=== PATIENT | female | born 1945 | race Caucasian/White ===

== ENCOUNTER 2023-04-14 14:58 | Outpatient (RCR) | payer OTHER, SELFPAY | END 2023-04-14 23:59 | disposition home or self-care (01) | LOC: RPT 14:58 | PROVIDERS: ATTENDING PHYSICIAN Neurological Surgery; FAMILY PHYSICIAN Internal Medicine | DX: M54.16 Radiculopathy, lumbar region (principal); Z98.1 Arthrodesis status; Z73.6 Limitation of activities due to disability | CPT/HCPCS: 97110; 97112; 97162; 97530 ==

== ENCOUNTER 2023-05-16 10:13 | Outpatient (RCR) | payer OTHER, SELFPAY | END 2023-05-16 23:59 | disposition home or self-care (01) | LOC: RPT 10:13 | PROVIDERS: ATTENDING PHYSICIAN Neurological Surgery; FAMILY PHYSICIAN Internal Medicine | DX: M54.16 Radiculopathy, lumbar region (principal); Z98.1 Arthrodesis status | CPT/HCPCS: 97110; 97112 ==

== ENCOUNTER → 2023-05-19 11:46 | Outpatient (REF) | payer OTHER, SELFPAY | LOC: PAVMRI 11:46 | PROVIDERS: ATTENDING PHYSICIAN Neurological Surgery; FAMILY PHYSICIAN Internal Medicine | DX: M54.16 Radiculopathy, lumbar region (principal); Z98.1 Arthrodesis status | CPT/HCPCS: 72148 ==

== ENCOUNTER → 2023-05-23 15:28 | Outpatient (REF) | payer OTHER, SELFPAY | LOC: HWRAD 15:28 | PROVIDERS: ATTENDING PHYSICIAN Neurological Surgery; FAMILY PHYSICIAN Internal Medicine | DX: Z98.1 Arthrodesis status (principal) | CPT/HCPCS: 72131 ==

== ENCOUNTER → 2023-05-24 07:39 | Outpatient (REF) | payer OTHER, SELFPAY | LOC: WDC 07:39 | PROVIDERS: ATTENDING PHYSICIAN Obstetrics & Gynecology; FAMILY PHYSICIAN Internal Medicine | DX: Z12.31 Encounter for screening mammogram for malignant neoplasm of breast (principal) | CPT/HCPCS: 77063; 77067 ==

== ENCOUNTER 2023-05-29 19:03 | Outpatient (RCR) | payer OTHER, SELFPAY | END 2023-05-29 23:59 | disposition home or self-care (01) | LOC: RPT 19:03 | PROVIDERS: ATTENDING PHYSICIAN Neurological Surgery; FAMILY PHYSICIAN Internal Medicine | DX: Z47.89 Encounter for other orthopedic aftercare (principal); M54.16 Radiculopathy, lumbar region; Z73.6 Limitation of activities due to disability; M62.81 Muscle weakness (generalized); R26.89 Other abnormalities of gait and mobility; Z98.1 Arthrodesis status | CPT/HCPCS: 97010; 97110; 97112 ==

== ENCOUNTER → 2024-01-08 07:28 | Outpatient (REF) | payer OTHER, SELFPAY | LOC: HWRAD 07:28 | PROVIDERS: ATTENDING PHYSICIAN Neurological Surgery; FAMILY PHYSICIAN Internal Medicine | DX: Z98.1 Arthrodesis status (principal) | CPT/HCPCS: 72131 ==

== ENCOUNTER 2024-02-26 06:14 | Day surgery (SDC) | payer MEDICARE, SELFPAY ==
[2024-02-02 13:13] VITALS: BMI 30.7
[2024-02-02 14:10] LABS: Hematocrit 44.8 % (37.0-47.0); Hemoglobin 14.7 g/dL (12.0-16.0); Mean Corp Hgb Conc. 32.8 g/dL (33.0-37.0); Mean Corpuscular Hgb 30.2 pg (27.0-31.0); Mean Platelet Volume 10.1 fL (7.4-10.4); Platelet Count 325 10^3/uL (130-400); Red Blood Cell Count 4.87 10^6/uL (4.20-5.40); Red Cell Dist. Width 14.7 % (11.5-14.5); White Blood Cell Count 7.7 10^3/uL (4.8-10.8)
[2024-02-02 14:35] LABS: ALT (SGPT) 24 U/L (0-35); AST (SGOT) 31 U/L (14-36); Albumin 4.4 g/dl (3.5-5.0); Alkaline Phosphatase 93 U/L (38-126); Blood Urea Nitrogen 25 mg/dl (7-17); Calcium 9.4 mg/dl (8.4-10.2); Carbon Dioxide 30 mmol/L (22-30); Chloride 99 mmol/L (98-107); Estimated Creatinine Clearance 59 ml/min; Glucose 84 mg/dl (70-99); Potassium 4.3 mmol/L (3.5-5.1); Sodium 142 mmol/L (135-145); Total Bilirubin 0.4 mg/dl (0.2-1.3); Total Protein 7.4 g/dl (6.3-8.2); eGFR > 60.00
[2024-02-03 09:05] LABS: Glycohemoglobin (HgbA1c) 5.7 % (4.0-5.6)
--- NOTE | 2024-02-13 11:51 | VNURNOTE ---
Chart reviewed. Patient is scheduled for L SRAVAN SDS / PSR on 02/25. Per [facility] outpt PT on 02/27. Call placed to patient to confirm. Left message.
--- NOTE | 2024-02-13 14:47 | VNURNOTE ---
Spoke with patient. Confirmed plan is SDS/PSR on 02/25 then outpt PT at [facility] on 02/27. Pt confirms her appt is made.
Plan: Outpt PT on 02/27
[2024-02-20 09:33] VITALS: BMI 30.7
[2024-02-26] VITALS (18 sets, daily range): BP systolic 106–154; BP diastolic 57–94; PULSE 91–92; O2SAT 96–99
[2024-02-26] MEDS: CELEBREX 200 MG PO (08:51)
[2024-02-26] MEDS: TYLENOL 650 MG PO ×3 (08:51→19:36)
[2024-02-26] MEDS: DILAUDID 0.5 MG IV ×3 (13:42→15:39)
--- NOTE | 2024-02-26 14:14 | W.PN.ORTHO ---
Today's Communication / Plan
-
D/c when clinically stable.
Assessment
.
Distal Motor Intact: Yes
Dressing:
Scant incisional bleeding.
Assessment:
L hip OA s/p L SRAVAN adams/ Dr Ramirez 02/26/24
- s/p L TKA 2016
DVT prophylaxis - ASA, b/l venous foot pumps
HTN - + parameters - monitor BP
Chronically abnormal EKG - monitor on tele
GERD - continue PPI therapy
Ambulatory dysfunction - on fall precautions
HLD
Palpitations
Chronic PINEDA
Congenital absence of right kidney
Multilevel DDD
Rectocele
Breast CA, 1998, s/p L lumpectomy and XRT, previous Tamoxifen
Osteopenia
CHOCTAW
Prediabetes, A1c 5.7
Obesity, BMI 30.7
Plan
.
Surgery / Date: Moira adams/ Dr Ramirez 02/26/24
DVT Prophylaxis: Aspirin
Activity:
Out of bed.
PT/OT
Discharge Plan: Home w/ Outpatient PT
Subjective
.
.:
Patient examined resting in PACU.
Reporting L hip pain post-procedure - will order IV toradol, lidocaine patches.
Denies any other new significant complaints.
Vital Signs and Labs
.
Vital Signs and Labs:
Lab Results
02/02/24 12:44
02/02/24 12:44
Physical Exam
-
HEENT: No pallor, cyanosis, or jaundice. Throat clear.
NECK: Supple. No JVD.
RESPIRATORY: Lungs clear to auscultation.
CVS: S1, S2 normal. RRR.�
ABDOMEN: Soft, non-tender. No distension. Obese.
EXTREMITIES: Strength equal, no calf pain with palpation/dorsiflexion. Calves soft.
EASEMENT MAN: AOx3. No focal deficits. sustainability coach grossly intact
[2024-02-26] MEDS: ROXICODONE 5 MG PO (14:40)
[2024-02-26] MEDS: TORADOL 15 MG IV (14:40)
--- NOTE | 2024-02-26 15:20 | PTCARENOTE ---
Patient s/p L Hip Replacement. Drainage evident on dressing, marked to monitor. Patient is pleasant, AAOX3. Pain is 7/10. Will premedicate for upcoming PT/OT.
[2024-02-26] MEDS: NORMOSOL-R/PLASMALYTE-A 1000 IV (15:27)
[2024-02-26] MEDS: PROTONIX PO (15:28)
[2024-02-26] MEDS: VITAMIN D3 (cholecalciferol) 50 MCG PO (15:39)
[2024-02-26] MEDS: LIDOCAINE 4% PATCH 2 PATCH TOPICAL (15:39)
[2024-02-26] MEDS: ANCEF 5 IV (17:10)
[2024-02-26] MEDS: ASPIRIN 325 MG PO (17:10)
[2024-02-26] MEDS: ZOFRAN 4 MG IV (17:10)
[2024-02-26] MEDS: BACTROBAN 2% OINTMENT 1 APPLIC NASAL (19:36)
[2024-02-26] MEDS: COLACE 100 MG PO (19:36)
[2024-02-26] MEDS: DECADRON 4 MG PO (19:36)
[2024-02-26] MEDS: SENOKOT 17.2 MG PO (19:37)
[2024-02-26] MEDS: NON-FORMULARY ITEM 1 DROP OPHTH (19:37)
[2024-02-26] MEDS: PEPCID 20 MG PO (22:02)
[2024-02-27] MEDS: TYLENOL 650 MG PO ×4 (00:28→11:23)
[2024-02-27] MEDS: ANCEF 5 IV (02:09)
[2024-02-27 03:01] VITALS: BP 109/53
[2024-02-27 07:27] VITALS: BP 124/58
[2024-02-27] MEDS: SENOKOT PO ×2 (08:01→08:13)
[2024-02-27] MEDS: CELEBREX 200 MG PO (08:01)
[2024-02-27] MEDS: ASPIRIN 325 MG PO (08:01)
[2024-02-27] MEDS: PROTONIX 40 MG PO (08:02)
[2024-02-27] MEDS: COLACE 100 MG PO (08:02)
[2024-02-27] MEDS: PRAVACHOL 20 MG PO (08:02)
[2024-02-27] MEDS: VITAMIN D3 (cholecalciferol) 50 MCG PO (08:02)
[2024-02-27] MEDS: LIDOCAINE 4% PATCH 2 PATCH TOPICAL (08:02)
[2024-02-27] MEDS: BACTROBAN 2% OINTMENT 1 APPLIC NASAL (08:02)
[2024-02-27] MEDS: DECADRON 4 MG PO (08:02)
[2024-02-27] MEDS: NON-FORMULARY ITEM 1 DROP OPHTH (08:03)
--- NOTE | 2024-02-27 09:01 | W.PN.ORTHO ---
Today's Communication / Plan
-
Await PT and OT recs.
D/c later today if remaining clinically stable.
Assessment
.
Distal Motor Intact: Yes
Dressing:
Small areas of old incisional bleeding.
Assessment:
L hip OA s/p L SRAVAN w/ Dr Ramirez 02/26/24
- s/p L TKA 2016
DVT prophylaxis - ASA, b/l venous foot pumps
HTN - + parameters - BPs overall stable
Chronically abnormal EKG - rhythm stable on tele
GERD - continue PPI therapy
Ambulatory dysfunction - on fall precautions
HLD
Palpitations
Chronic PINEDA
Congenital absence of right kidney
Multilevel DDD
Rectocele
Breast CA, 1998, s/p L lumpectomy and XRT, previous Tamoxifen
Osteopenia
UMKUMIUT
Prediabetes, A1c 5.7
Obesity, BMI 30.7
Plan
.
Surgery / Date: L SRAVAN w/ Dr Ramirez 02/26/24
DVT Prophylaxis: Aspirin
Activity:
Out of bed.
PT/OT
Discharge Plan: Home w/ Outpatient PT
Subjective
.
.:
Patient resting comfortably in her chair.
L hip pain minimal overnight w/ current pain meds.
Denies any new significant complaints.
Eager for potential d/c today.
Vital Signs and Labs
.
Vital Signs and Labs:
Lab Results
02/02/24 12:44
02/02/24 12:44
Temp Pulse Resp BP Pulse Ox
97.9 F 85 16 124/58 97
02/27/24 07:27 02/27/24 07:27 02/27/24 07:27 02/27/24 07:27 02/27/24 07:27
Non-invasive Hgb result: 11.1
Physical Exam
-
HEENT: No pallor, cyanosis, or jaundice. Throat clear.
NECK: Supple. No JVD.
RESPIRATORY: Lungs clear to auscultation.
CVS: S1, S2 normal. RRR.�
ABDOMEN: Soft, non-tender. No distension. Obese.
EXTREMITIES: LLE chronically internally rotated post previous L TKA. Strength equal, no calf pain with palpation/dorsiflexion. Calves soft.
CYBER INCIDENT ANALYST: AOx3. No focal deficits. fifth hand grossly intact
--- NOTE | 2024-02-27 09:11 | W.DS.TRANS ---
DC Summary - [employer]
-
Discharge Instructions:
Sleep Apnea Risk Low
Discharge Diagnosis/Procedures L hip OA s/p L SRAVAN w/ Dr Ramirez 02/26/24
Diet Regular
Activity As tolerated,With Walker
Driving Restrictions Not until seen by your Dr
Bathing Restrictions OK to Shower
Other Services PT
Wound Care Dressing to be removed 1 week post-surgery.
Instructions:
Stand-Alone Forms: Total Hip/Knee Replacement D/C
Changes to Home Medications: Yes
Discharge Medications:
DC Medications w/original date entered in [employer]
cholecalciferol (vitamin D3) 50 mcg (2,000 unit) capsule (Vitamin D3) 2,000 unit PO DAILY 03/22/17
omeprazole 40 mg capsule,delayed release 40 mg PO DAILY 03/22/17
Vitamin C 1 dose PO DAILY 02/20/24
lifitegrast 5 % eye drops in a dropperette (Xiidra) 1 drp ophthalmic (eye) BID 02/20/24
multivitamin 1 tab PO DAILY 02/20/24
pravastatin 20 mg tablet 20 mg PO DAILY 02/20/24
famotidine 20 mg tablet (Pepcid) 20 mg PO HS 02/26/24
mupirocin 2 % topical ointment 1 applic topical BID 02/26/24
acetaminophen 325 mg tablet (Tylenol) 650 mg (2 x 325 mg) PO Q4HWA #60 tabs 02/27/24
aspirin 325 mg tablet 325 mg PO DAILY #30 tabs 02/27/24
celecoxib 100 mg capsule (Celebrex) 100 mg PO BID #30 caps 02/27/24
dexamethasone 4 mg tablet 4 mg PO Q12H Anti-inflammatory #7 tabs 02/27/24
docusate sodium 100 mg capsule 100 mg PO BID #30 caps 02/27/24
lidocaine 4 % topical patch 2 patch topical DAILY #30 ea 02/27/24
ondansetron HCl 4 mg tablet 4 mg PO Q6H PRN nausea and vomiting #30 tabs 02/27/24
oxycodone 5 mg tablet 5 - 10 mg (1 - 2 x 5 mg) PO Q6H PRN moderate-severe pain #30 tabs 02/27/24
sennosides 8.6 mg tablet (Senna Laxative) 17.2 mg (2 x 8.6 mg) PO BID #30 tabs 02/27/24
triamterene 37.5 mg-hydrochlorothiazide 25 mg tablet 1 tab PO DAILY #1 tab 02/27/24
Home Medication Changes
acetaminophen 325 mg tablet (Tylenol) 650 mg (2 x 325 mg) PO Q4HWA #60 tabs 02/27/24
aspirin 325 mg tablet 325 mg PO DAILY #30 tabs 02/27/24
celecoxib 100 mg capsule (Celebrex) 100 mg PO BID #30 caps 02/27/24
dexamethasone 4 mg tablet 4 mg PO Q12H Anti-inflammatory #7 tabs 02/27/24
docusate sodium 100 mg capsule 100 mg PO BID #30 caps 02/27/24
lidocaine 4 % topical patch 2 patch topical DAILY #30 ea 02/27/24
ondansetron HCl 4 mg tablet 4 mg PO Q6H PRN nausea and vomiting #30 tabs 02/27/24
oxycodone 5 mg tablet 5 - 10 mg (1 - 2 x 5 mg) PO Q6H PRN moderate-severe pain #30 tabs 02/27/24
sennosides 8.6 mg tablet (Senna Laxative) 17.2 mg (2 x 8.6 mg) PO BID #30 tabs 02/27/24
Pending Results: No
[2024-02-27] MEDS: ROXICODONE 5 MG PO (09:27)
--- NOTE | 2024-02-27 10:12 | CM ---
Cm met with pt bedside
Pt resides with her spouse in a multi-level house with 3STE
7+7 steps to second floor bed and bath
Pt is typically is indep with her ADLs at baseline w/o ADs
She has a WW, cane, walking stick and RTS at home
Denies financial insecurities
PCP- Mikel Donohue
Rx- [facility]
Pt has outpt appt scheduled tomorrow 02/27 at outpatient center
No other dc needs noted
Dtr/[facility] available for support as well
Discharge Disposition- home with outpt therapy, family transport
[2024-02-27 11:20] VITALS: BP 105/51; PULSE 75; O2SAT 98
[2024-02-27 11:40] VITALS: BP 105/51
[2024-02-27 12:30] VITALS: BP 120/54; PULSE 70; O2SAT 97
== END 2024-02-27 13:12 | disposition home or self-care (01) ==
LOC: SDS 06:14
PROVIDERS: ATTENDING PHYSICIAN Specialist; FAMILY PHYSICIAN Internal Medicine; OTHER PHYSICIAN Internal Medicine Cardiovascular Disease; OTHER PHYSICIAN Internal Medicine Rheumatology
PROC: 0SRB0JZ Replacement of Left Hip Joint with Synthetic Substitute, Open Approach (ICD-10-PCS; 2024-02-26)
DX: M16.12 Unilateral primary osteoarthritis, left hip (principal); E66.811 Obesity, class 1; I10 Essential (primary) hypertension; Q60.0 Renal agenesis, unilateral; Z68.30 Body mass index [BMI] 30.0-30.9, adult
CPT/HCPCS: 27130; 36415; 73502; 80053; 83036; 85027; 87070; 97110; 97116; 97162; 97166; 97530; 97535; C1713; C1776

== ENCOUNTER → 2024-03-04 13:33 | Outpatient (REF) | payer OTHER, SELFPAY ==
[2024-03-04 15:26] LABS: % Basophils 0.5 % (0-2); % Eosinophils 1.9 % (0-6); % Immature Granulocytes 1.7 % (0-0.5); % Lymphocytes 13.4 % (20.5-51.1); % Monocytes 9.8 % (1.7-9.3); % Neutrophils 72.7 % (42.2-75.2); Absolute Eosinophils 0.2 10^3/uL (0-0.7); Absolute Immature Granulocytes 0.1 10^3/uL (0-0.05); Absolute Lymphocytes 1.1 10^3/uL (1.2-3.4); Absolute Monocytes 0.8 10^3/uL (0.1-0.6); Absolute Neutrophils 6.1 10^3/uL (1.4-6.5); Hematocrit 39.4 % (37.0-47.0); Hemoglobin 12.5 g/dL (12.0-16.0); Mean Corp Hgb Conc. 31.7 g/dL (33.0-37.0); Mean Corpuscular Hgb 29.8 pg (27.0-31.0); Mean Platelet Volume 9.2 fL (7.4-10.4); Nucleated Red Blood Cells % 0 %; Platelet Count 362 10^3/uL (130-400); Red Blood Cell Count 4.19 10^6/uL (4.20-5.40); Red Cell Dist. Width 15.2 % (11.5-14.5); White Blood Cell Count 8.4 10^3/uL (4.8-10.8)
[2024-03-04 15:53] LABS: Erythrocyte Sed Rate 26 mm/hour (0-20)
== END ==
LOC: REG 13:33
PROVIDERS: ATTENDING PHYSICIAN Student in an Organized Health Care Education/Training Program; FAMILY PHYSICIAN Internal Medicine
DX: Z96.642 Presence of left artificial hip joint (principal); Z51.89 Encounter for other specified aftercare
CPT/HCPCS: 36415; 85025; 85652; 86140

== ENCOUNTER → 2024-03-13 12:15 | Outpatient (REF) | payer MEDICARE, SELFPAY ==
[2024-03-13 13:32] LABS: % Basophils 0.6 % (0-2); % Eosinophils 2.6 % (0-6); % Immature Granulocytes 0.5 % (0-0.5); % Lymphocytes 11.9 % (20.5-51.1); % Monocytes 8.6 % (1.7-9.3); % Neutrophils 75.8 % (42.2-75.2); Absolute Eosinophils 0.2 10^3/uL (0-0.7); Absolute Lymphocytes 0.8 10^3/uL (1.2-3.4); Absolute Monocytes 0.6 10^3/uL (0.1-0.6); Absolute Neutrophils 4.9 10^3/uL (1.4-6.5); Hemoglobin 12.6 g/dL (12.0-16.0); Mean Corp Hgb Conc. 32.3 g/dL (33.0-37.0); Mean Corpuscular Hgb 30.3 pg (27.0-31.0); Mean Corpuscular Volume 93.8 fL (81.0-99.0); Mean Platelet Volume 9.3 fL (7.4-10.4); Nucleated Red Blood Cells % 0 %; Platelet Count 379 10^3/uL (130-400); Red Blood Cell Count 4.16 10^6/uL (4.20-5.40); Red Cell Dist. Width 15.3 % (11.5-14.5); White Blood Cell Count 6.5 10^3/uL (4.8-10.8)
[2024-03-13 14:37] LABS: Erythrocyte Sed Rate 22 mm/hour (0-20)
== END ==
LOC: REG 12:15
PROVIDERS: ATTENDING PHYSICIAN Physician Assistant Surgical; FAMILY PHYSICIAN Internal Medicine
DX: Z96.642 Presence of left artificial hip joint (principal)
CPT/HCPCS: 36415; 85025; 85652; 86140

== ENCOUNTER 2024-03-15 09:55 | Outpatient (RCR) | payer OTHER, SELFPAY | END 2024-03-15 23:59 | disposition home or self-care (01) | LOC: RPT 09:55 | PROVIDERS: ATTENDING PHYSICIAN Specialist; FAMILY PHYSICIAN Internal Medicine | DX: Z47.1 Aftercare following joint replacement surgery (principal); Z73.6 Limitation of activities due to disability; R26.89 Other abnormalities of gait and mobility; M62.81 Muscle weakness (generalized); Z96.642 Presence of left artificial hip joint; Z98.1 Arthrodesis status | CPT/HCPCS: 97010; 97110; 97116; 97162; 97530 ==

== ENCOUNTER 2024-04-15 11:09 | Outpatient (RCR) | payer OTHER, SELFPAY | END 2024-04-15 23:59 | disposition home or self-care (01) | LOC: RPT 11:09 | PROVIDERS: ATTENDING PHYSICIAN Specialist; FAMILY PHYSICIAN Internal Medicine | DX: Z47.1 Aftercare following joint replacement surgery (principal); Z96.642 Presence of left artificial hip joint; Z73.6 Limitation of activities due to disability; M62.81 Muscle weakness (generalized); R26.89 Other abnormalities of gait and mobility; Z98.1 Arthrodesis status | CPT/HCPCS: 97010; 97110; 97140; 97530 ==

== ENCOUNTER 2024-05-10 11:07 | Outpatient (RCR) | payer OTHER, SELFPAY | END 2024-05-10 23:59 | disposition home or self-care (01) | LOC: RPT 11:07 | PROVIDERS: ATTENDING PHYSICIAN Specialist; FAMILY PHYSICIAN Internal Medicine | DX: Z47.1 Aftercare following joint replacement surgery (principal); Z96.642 Presence of left artificial hip joint; Z73.6 Limitation of activities due to disability; M62.81 Muscle weakness (generalized); R26.89 Other abnormalities of gait and mobility; Z98.1 Arthrodesis status | CPT/HCPCS: 97110; 97140 ==

== ENCOUNTER → 2024-05-28 07:49 | Outpatient (REF) | payer OTHER, SELFPAY | LOC: WDC 07:49 | PROVIDERS: ATTENDING PHYSICIAN Obstetrics & Gynecology; FAMILY PHYSICIAN Internal Medicine | DX: Z12.31 Encounter for screening mammogram for malignant neoplasm of breast (principal) | CPT/HCPCS: 77063; 77067 ==

== ENCOUNTER → 2024-07-16 11:33 | Outpatient (REF) | payer OTHER, SELFPAY ==
[2024-07-16 12:53] LABS: Blood Urea Nitrogen 24 mg/dl (7-17)
== END ==
LOC: REG 11:33
PROVIDERS: ATTENDING PHYSICIAN Otolaryngology; FAMILY PHYSICIAN Internal Medicine
DX: Z01.818 Encounter for other preprocedural examination (principal)
CPT/HCPCS: 36415; 82565; 84520

== ENCOUNTER → 2024-08-08 10:46 | Outpatient (REF) | payer OTHER, SELFPAY | LOC: PAVMRI 10:46 | PROVIDERS: ATTENDING PHYSICIAN Otolaryngology; FAMILY PHYSICIAN Internal Medicine | DX: H90.3 Sensorineural hearing loss, bilateral (principal) | CPT/HCPCS: 70553; A9575 ==

== ENCOUNTER → 2024-10-02 08:49 | Outpatient (REF) | payer OTHER, SELFPAY | LOC: RAD 08:49 | PROVIDERS: ATTENDING PHYSICIAN Internal Medicine Rheumatology; FAMILY PHYSICIAN Internal Medicine | DX: M81.0 Age-related osteoporosis without current pathological fracture (principal); Z13.820 Encounter for screening for osteoporosis | CPT/HCPCS: 77080 ==

== ENCOUNTER → 2024-11-22 14:38 | Outpatient (REF) | payer OTHER, SELFPAY | LOC: RAD 14:38 | PROVIDERS: ATTENDING PHYSICIAN Internal Medicine Rheumatology; FAMILY PHYSICIAN Internal Medicine | DX: M79.641 Pain in right hand (principal) | CPT/HCPCS: 73130 ==